=== PATIENT | female | born 1955 | race Caucasian/White ===

== ENCOUNTER 2017-11-10 07:31 | Day surgery (SDC) | payer BC ==
[2017-11-10] MEDS ORDERED: MIDAZOLAM 1 MG/ML 2 ML INJ (08:55)
[2017-11-10] MEDS ORDERED: LIDOCAINE 2% (SDV) 5 ML INJ (08:55)
[2017-11-10] MEDS ORDERED: PROPOFOL 20 ML (08:55)
== END 2017-11-10 15:13 | disposition home or self-care (01) ==
LOC: GIL 07:31
DX: K29.30 Chronic superficial gastritis without bleeding (principal); K64.8 Other hemorrhoids; I25.10 Atherosclerotic heart disease of native coronary artery without angina pectoris; I50.9 Heart failure, unspecified; Z86.718 Personal history of other venous thrombosis and embolism; I10 Essential (primary) hypertension
CPT/HCPCS: 43239; 88305; 88312

== ENCOUNTER 2018-05-06 20:02 | Inpatient (IN) | payer BC ==
[2018-05-06] MEDS ORDERED: ACETAMINOPHEN 325 MG TAB PO (21:00)
[2018-05-06] MEDS ORDERED: NACL 0.9% 3 ML SYG IV (21:00)
[2018-05-06] MEDS ORDERED: ALBUTEROL/IPRATROPIUM (NEB) 3 ML AMP HHN (21:00)
[2018-05-06] MEDS ORDERED: ONDANSETRON 4 MG INJ IV (21:00)
[2018-05-06] MEDS ORDERED: NITROGLYCERIN (SL) 0.4 MG TAB SL (21:00)
[2018-05-06 21:29] LABS: CREATINE KINASE 21 IU/L (23-200)
[2018-05-06 21:41] LABS: CK INDEX 1.5; CK-MB 0.31 ng/ml (0.0-2.4); TROPONIN-I < 0.012 ng/ml (0.000-0.120)
[2018-05-06] MEDS: ACETAMINOPHEN 325 MG TAB PO (22:06)
[2018-05-06] MEDS: FAMOTIDINE 20 MG INJ IV (22:06)
[2018-05-07] MEDS: AZITHROMYCIN 250 MG TAB PO (02:32)
[2018-05-07 03:00] LABS: CREATINE KINASE 32 IU/L (23-200)
[2018-05-07 03:13] LABS: CK INDEX 0.7; CK-MB < 0.22 ng/ml (0.0-2.4); TROPONIN-I < 0.012 ng/ml (0.000-0.120)
[2018-05-07] MEDS ORDERED: METOPROLOL 50 MG TAB GTB (05:00)
[2018-05-07] MEDS: METOPROLOL 50 MG TAB PO (05:39)
[2018-05-07 07:41] LABS: ADD MAN DIFF? NO
[2018-05-07 07:49] LABS: BASOPHIL # 0.1 10^3/ul (0.0-0.1); BASOPHILS % 0.8 % (0.0-2.0); EOSINOPHILS # 0.2 10^3/ul (0.0-0.5); EOSINOPHILS % 2.6 % (0.0-7.0); HEMATOCRIT 37.2 % (37.0-47.0); HEMOGLOBIN 12.6 g/dl (12.0-16.0); LYMPHOCYTES # 3.3 10^3/ul (0.8-2.9); LYMPHOCYTES % 36.1 % (15.0-51.0); MEAN CORPUSCULAR HEMOGLOBIN 30.3 pg (29.0-33.0); MEAN CORPUSCULAR HGB CONC 33.9 g/dl (32.0-37.0); MEAN CORPUSCULAR VOLUME 89.4 fl (82.0-101.0); MEAN PLATELET VOLUME 9.5 fl (7.4-10.4); MONOCYTE # 0.5 10^3/ul (0.3-0.9); MONOCYTES % 5.9 % (0.0-11.0); NEUTROPHIL # 4.9 10^3/ul (1.6-7.5); NEUTROPHILS % 54.4 % (39.0-77.0); PLATELET COUNT 330 10^3/UL (140-415); RED BLOOD COUNT 4.16 10^6/ul (4.20-5.40); RED CELL DISTRIBUTION WIDTH 13.4 % (11.5-14.5)
[2018-05-07 08:10] LABS: ALANINE AMINOTRANSFERASE 36 IU/L (13-69); ALBUMIN 3.9 g/dl (3.3-4.9); ALBUMIN/GLOBULIN RATIO 1.21; ALKALINE PHOSPHATASE 77 IU/L (42-121); ANION GAP 8 (5-13); ASPARTATE AMINO TRANSFERASE 24 IU/L (15-46); BILIRUBIN,INDIRECT 0.7 mg/dl (0-1.1); BILIRUBIN,TOTAL 0.7 mg/dl (0.2-1.3); BLOOD UREA NITROGEN 13 mg/dl (7-20); CALCIUM 9.1 mg/dl (8.4-10.2); CARBON DIOXIDE 30 mmol/L (21-31); CHLORIDE 102 mmol/L (97-110); CHOL/HDL RATIO 7.5 RATIO; CHOLESTEROL 264 mg/dl (100-200); CREATININE 0.53 mg/dl (0.44-1.00); Estimated GFR > 60 mL/min (>60); GLUCOSE 117 mg/dl (70-220); HDL CHOLESTEROL 35 mg/dl (35-98); LDL CHOLESTEROL,CALCULATED 199 mg/dl; POTASSIUM 3.7 mmol/L (3.5-5.1); SODIUM 140 mmol/L (135-144); TOTAL PROTEIN 7.1 g/dl (6.1-8.1); TRIGLYCERIDES 152 mg/dl (0-149)
[2018-05-07] MEDS ORDERED: METOPROLOL 50 MG TAB PO (09:00)
[2018-05-07] MEDS: FAMOTIDINE 20 MG INJ IV (09:47)
[2018-05-07 11:20] LABS: HEMOGLOBIN A1C 5.9 % (0-5.9)
[2018-05-07] MEDS: LOSARTAN 50 MG TAB PO (12:34)
== END 2018-05-07 18:57 | disposition home or self-care (01) | DRG 312 ==
LOC: TEL 20:02
DX: I95.2 Hypotension due to drugs (principal); I10 Essential (primary) hypertension; Z95.810 Presence of automatic (implantable) cardiac defibrillator; T46.5X5A Adverse effect of other antihypertensive drugs, initial encounter
CPT/HCPCS: 76775; 80053; 80061; 82088; 82550; 82553; 83036; 83735; 84244; 84443; 84484; 85025; 93005